=== PATIENT | male | born 1975 | race Two or more races ===

== ENCOUNTER 2022-09-22 15:17 | Inpatient (IN) | payer OTHER ==
[2022-09-22] MEDS ORDERED: ACETAMINOPHEN 500 MG TABLET (FP) PO ONE (16:23)
[2022-09-22 18:15] LABS: BASO % 0.7 % (0-2.0); EOS % 1.8 % (0-4.5); HEMATOCRIT 33.6 % (35.4-49); HEMOGLOBIN 11.3 GM/dL (11.7-16.9); LYMPH % 11.7 % (8-40); MCH 27.8 pg (25.7-33.7); MCHC 33.7 g/dl (32.0-35.9); MEAN CELL VOLUME 82.5 fl (80-96); MEAN PLT VOLUME 7.7 fl (7.5-11.1); MONO % 6.9 % (3.8-10.2); NEUT % 78.9 % (42.8-82.8); PLATELET COUNT 471 10^3/uL (134-434); RBC 4.07 M/mm3 (4.00-5.60); RDW 12.2 % (11.9-15.9)
[2022-09-22 18:40] LABS: ALBUMIN 2.2 g/dl (3.4-5.0); BLOOD UREA NITROGEN 18.5 mg/dL (7-18)
[2022-09-22 18:43] LABS: CREATININE 1.2 mg/dL (0.55-1.3)
[2022-09-22 18:44] LABS: BILIRUBIN,TOTAL 0.2 mg/dL (0.2-1); TOT PROT 7.3 g/dl (6.4-8.2)
[2022-09-22] MEDS ORDERED: CLINDAMYCIN 600MG PREMIX IVPB 600 MG/50 ML BAG IVPB ONE ×2 (20:40→21:06)
[2022-09-22] MEDS ORDERED: ACETAMINOPHEN 325 MG TABLET (FP) ONE (20:42)
[2022-09-22 21:08] LABS: BLOOD UREA NITROGEN 20.1 mg/dL (7-18); CALCIUM 8.9 mg/dL (8.5-10.1)
[2022-09-22 21:11] LABS: CREATININE 1.2 mg/dL (0.55-1.3)
[2022-09-23] MEDS ORDERED: CLINDAMYCIN 600MG PREMIX IVPB 600 MG/50 ML BAG IVPB ONE (06:13)
[2022-09-23] MEDS ORDERED: GABAPENTIN 100 MG CAPSULE ONE (06:13)
[2022-09-23] MEDS ORDERED: INSULIN (NOVOLOG) ASPART 100 UNITS/ML 10ML VIAL ONE ×2 (06:24→11:46)
[2022-09-23] MEDS: CLINDAMYCIN 600MG PREMIX IVPB 600 MG/50 ML BAG IVPB SCH ×4 (06:25→21:00)
[2022-09-23] MEDS: GABAPENTIN 100 MG CAPSULE PO SCH ×3 (06:25→22:24)
[2022-09-23] MEDS: INSULIN SLIDING SCALE (NOVOLOG) 1 VIAL SQ SCH ×4 (06:26→22:38)
[2022-09-23 09:06] LABS: HEMATOCRIT 29.6 % (35.4-49); HEMOGLOBIN 9.8 GM/dL (11.7-16.9); MCH 27.6 pg (25.7-33.7); MCHC 33.3 g/dl (32.0-35.9); PLATELET COUNT 429 10^3/uL (134-434); RBC 3.56 M/mm3 (4.00-5.60); RDW 12.2 % (11.9-15.9); RETICULOCYTES 1.95 % (0.5-1.5); WHITE BLOOD COUNT 16.4 K/mm3 (4.0-10.0)
[2022-09-23] MEDS ORDERED: ENOXAPARIN NA (PORCINE) 40 MG/0.4 ML DISP.SYRIN SQ ONE (09:30)
[2022-09-23 09:31] LABS: CHLORIDE 96 mmol/L (98-107); SODIUM 132 mmol/L (136-145)
[2022-09-23] MEDS: ENOXAPARIN NA (PORCINE) 40 MG/0.4 ML DISP.SYRIN SQ SCH (09:37)
[2022-09-23] MEDS: LISINOPRIL 10 MG TABLET PO SCH (09:38)
[2022-09-23 09:43] LABS: ALBUMIN 1.9 g/dl (3.4-5.0); ANION GAP 6 MMOL/L (8-16); BLOOD UREA NITROGEN 24.7 mg/dL (7-18); CALCIUM 8.5 mg/dL (8.5-10.1); CO2 30 mmol/L (21-32); GLUCOSE,RANDOM 376 mg/dL (74-106)
[2022-09-23 09:46] LABS: CREATININE 1.4 mg/dL (0.55-1.3); LDH 212 U/L (87-246); SGOT/AST 10 U/L (15-37); SGPT/ALT 14 U/L (13-61)
[2022-09-23 09:47] LABS: BILIRUBIN,TOTAL 0.2 mg/dL (0.2-1); TOT PROT 6.2 g/dl (6.4-8.2)
[2022-09-23 09:48] LABS: ALK PHOS 154 U/L (45-117)
[2022-09-23 09:49] LABS: MAGNESIUM 2.4 mg/dL (1.8-2.4)
[2022-09-23] MEDS ORDERED: HYDROCHLOROTHIAZIDE 12.5 MG CAPSULE (FP) PO SCH (10:00)
[2022-09-23 10:50] LABS: GAMMA GLUTAMYL TRANSPEPTIDASE 38 U/L (5-85)
[2022-09-23 17:23] LABS: URIC ACID 7.3 mg/dL (2.6-7.2)
[2022-09-23 17:46] LABS: EPI CELLS 6 /uL (0-25.1); HYALINE CASTS 1 /uL (0-3.1); URINE APPEARANCE CLEAR; URINE BACTERIA 3 /uL (0-1359); URINE BILIRUBIN NEGATIVE (NEGATIVE); URINE COLOR YELLOW; URINE GLUCOSE (UA) 3+ (NEGATIVE); URINE KETONE NEGATIVE (NEGATIVE); URINE LEUK ESTERASE NEGATIVE (NEGATIVE); URINE NITRITE NEGATIVE (NEGATIVE); URINE PROTEIN 3+ (NEGATIVE); URINE RBC 48 /uL (0-23.9); URINE UROBILINOGEN 0.2 mg/dL (0.2-1.0); URINE WBC 8 /uL (0-25.8)
[2022-09-23] MEDS ORDERED: INSULIN (LEVEMIR) 100 UNITS/ML UNITS SQ SCH (22:00)
[2022-09-23] MEDS: ATORVASTATIN CA 40 MG TABLET (FP) PO SCH (22:24)
[2022-09-23] MEDS: INSULIN (LEVEMIR) 100 UNITS/ML UNITS SQ SCH (22:25)
[2022-09-24] MEDS: CLINDAMYCIN 600MG PREMIX IVPB 600 MG/50 ML BAG IVPB SCH ×4 (03:24→21:47)
[2022-09-24] MEDS: INSULIN SLIDING SCALE (NOVOLOG) 1 VIAL SQ SCH ×4 (06:32→22:57)
[2022-09-24] MEDS: GABAPENTIN 100 MG CAPSULE PO SCH ×3 (06:32→22:47)
[2022-09-24] MEDS ORDERED: TAMSULOSIN HCL 0.4 MG CAP PO SCH ×2 (08:30→22:00)
[2022-09-24] MEDS: LISINOPRIL 10 MG TABLET PO SCH (09:46)
[2022-09-24] MEDS: ENOXAPARIN NA (PORCINE) 40 MG/0.4 ML DISP.SYRIN SQ SCH (09:46)
[2022-09-24] MEDS: ACETAMINOPHEN 325 MG TABLET (FP) PO PRN ×2 (17:12→22:47)
[2022-09-24] MEDS: ATORVASTATIN CA 40 MG TABLET (FP) PO SCH (22:47)
[2022-09-24] MEDS: INSULIN (LEVEMIR) 100 UNITS/ML UNITS SQ SCH (22:57)
[2022-09-25] MEDS: CLINDAMYCIN 600MG PREMIX IVPB 600 MG/50 ML BAG IVPB SCH ×4 (03:21→20:32)
[2022-09-25] MEDS: INSULIN SLIDING SCALE (NOVOLOG) 1 VIAL SQ SCH ×4 (06:50→21:56)
[2022-09-25] MEDS: GABAPENTIN 100 MG CAPSULE PO SCH ×3 (06:50→21:55)
[2022-09-25] MEDS: ACETAMINOPHEN 325 MG TABLET (FP) PO PRN (06:50)
[2022-09-25] MEDS ORDERED: TAMSULOSIN HCL 0.4 MG CAP PO SCH (08:30)
[2022-09-25 09:30] LABS: BASO % 0.8 % (0-2.0); EOS % 1.3 % (0-4.5); LYMPH % 14.6 % (8-40); MCH 28.6 pg (25.7-33.7); MCHC 34.8 g/dl (32.0-35.9); MEAN CELL VOLUME 82.3 fl (80-96); MEAN PLT VOLUME 7.3 fl (7.5-11.1); NEUT % 75.3 % (42.8-82.8); PLATELET COUNT 433 10^3/uL (134-434); RBC 3.16 M/mm3 (4.00-5.60); RDW 12.3 % (11.9-15.9); WHITE BLOOD COUNT 14.3 K/mm3 (4.0-10.0)
[2022-09-25] MEDS: ENOXAPARIN NA (PORCINE) 40 MG/0.4 ML DISP.SYRIN SQ SCH (10:25)
[2022-09-25] MEDS: COLCHICINE 0.6 MG TAB PO SCH (10:25)
[2022-09-25] MEDS: LISINOPRIL 10 MG TABLET PO SCH ×2 (10:25→10:39)
[2022-09-25] MEDS ORDERED: INSULIN (LEVEMIR) 100 UNITS/ML UNITS SQ SCH (12:50)
[2022-09-25] MEDS: TAMSULOSIN HCL 0.4 MG CAP PO SCH (13:32)
[2022-09-25 18:12] LABS: ALBUMIN 1.9 g/dl (3.4-5.0); BLOOD UREA NITROGEN 35.4 mg/dL (7-18); CALCIUM 8.6 mg/dL (8.5-10.1)
[2022-09-25 18:13] LABS: MAGNESIUM 2.5 mg/dL (1.8-2.4)
[2022-09-25 18:15] LABS: CREATININE 1.3 mg/dL (0.55-1.3)
[2022-09-25 18:18] LABS: TOT PROT 6.9 g/dl (6.4-8.2)
[2022-09-25 18:27] LABS: BILIRUBIN,TOTAL 0.2 mg/dL (0.2-1)
[2022-09-25] MEDS ORDERED: DOCUSATE SODIUM 100 MG CAPSULE (FP) PO ONE (21:10)
[2022-09-25] MEDS: ATORVASTATIN CA 40 MG TABLET (FP) PO SCH (21:55)
[2022-09-26] MEDS: CLINDAMYCIN 600MG PREMIX IVPB 600 MG/50 ML BAG IVPB SCH ×4 (03:38→21:53)
[2022-09-26] MEDS: GABAPENTIN 100 MG CAPSULE PO SCH ×3 (05:29→21:54)
[2022-09-26] MEDS: INSULIN SLIDING SCALE (NOVOLOG) 1 VIAL SQ SCH ×4 (06:28→21:55)
[2022-09-26] MEDS: ENOXAPARIN NA (PORCINE) 40 MG/0.4 ML DISP.SYRIN SQ SCH (09:07)
[2022-09-26] MEDS: TAMSULOSIN HCL 0.4 MG CAP PO SCH (09:08)
[2022-09-26] MEDS: LISINOPRIL 10 MG TABLET PO SCH ×2 (09:08→09:09)
[2022-09-26] MEDS: COLCHICINE 0.6 MG TAB PO SCH (09:08)
[2022-09-26] MEDS ORDERED: INSULIN (LEVEMIR) 100 UNITS/ML UNITS SQ SCH (11:42)
[2022-09-26 12:36] LABS: CALCIUM 8.4 mg/dL (8.5-10.1)
[2022-09-26 12:37] LABS: ALBUMIN 1.7 g/dl (3.4-5.0); BLOOD UREA NITROGEN 44.6 mg/dL (7-18); MAGNESIUM 2.6 mg/dL (1.8-2.4)
[2022-09-26 12:40] LABS: CREATININE 1.5 mg/dL (0.55-1.3)
[2022-09-26 12:42] LABS: BILIRUBIN,TOTAL 0.2 mg/dL (0.2-1)
[2022-09-26] MEDS: POLYETHYLENE GLYCOL (HEALTHYLAX) 3350 17 GM PACKET PO SCH (13:09)
[2022-09-26] MEDS ORDERED: INSULIN (NOVOLOG) ASPART 100 UNITS/ML 10ML VIAL ONE ×2 (20:57→21:33)
[2022-09-26] MEDS: ATORVASTATIN CA 40 MG TABLET (FP) PO SCH (21:54)
[2022-09-27] MEDS: CLINDAMYCIN 600MG PREMIX IVPB 600 MG/50 ML BAG IVPB SCH ×4 (02:07→20:50)
[2022-09-27] MEDS: GABAPENTIN 100 MG CAPSULE PO SCH ×3 (05:32→21:10)
[2022-09-27] MEDS: INSULIN SLIDING SCALE (NOVOLOG) 1 VIAL SQ SCH ×4 (06:36→21:10)
[2022-09-27] MEDS ORDERED: INSULIN (NOVOLOG) ASPART 100 UNITS/ML 10ML VIAL ONE ×3 (06:58→20:35)
[2022-09-27] MEDS: TAMSULOSIN HCL 0.4 MG CAP PO SCH (08:35)
[2022-09-27] MEDS: POLYETHYLENE GLYCOL (HEALTHYLAX) 3350 17 GM PACKET PO SCH (09:36)
[2022-09-27] MEDS: LISINOPRIL 10 MG TABLET PO SCH (09:36)
[2022-09-27] MEDS: COLCHICINE 0.6 MG TAB PO SCH (09:36)
[2022-09-27] MEDS: ENOXAPARIN NA (PORCINE) 40 MG/0.4 ML DISP.SYRIN SQ SCH (09:36)
[2022-09-27 15:19] LABS: CALCIUM 8.6 mg/dL (8.5-10.1)
[2022-09-27 15:20] LABS: BLOOD UREA NITROGEN 39.6 mg/dL (7-18); MAGNESIUM 2.8 mg/dL (1.8-2.4)
[2022-09-27 15:23] LABS: CREATININE 1.4 mg/dL (0.55-1.3)
[2022-09-27 15:24] LABS: BILIRUBIN,TOTAL 0.2 mg/dL (0.2-1); TOT PROT 6.7 g/dl (6.4-8.2)
[2022-09-27] MEDS ORDERED: INSULIN (LEVEMIR) 100 UNITS/ML UNITS SQ ONE (20:43)
[2022-09-27] MEDS: ACETAMINOPHEN 325 MG TABLET (FP) PO PRN (21:08)
[2022-09-27] MEDS: INSULIN (LEVEMIR) 100 UNITS/ML UNITS SQ SCH (21:10)
[2022-09-27] MEDS: ATORVASTATIN CA 40 MG TABLET (FP) PO SCH (21:10)
[2022-09-28] MEDS: CLINDAMYCIN 600MG PREMIX IVPB 600 MG/50 ML BAG IVPB SCH ×3 (02:00→14:51)
[2022-09-28] MEDS: GABAPENTIN 100 MG CAPSULE PO SCH ×3 (05:56→22:37)
[2022-09-28] MEDS: INSULIN SLIDING SCALE (NOVOLOG) 1 VIAL SQ SCH ×4 (06:01→22:38)
[2022-09-28] MEDS: ALLOPURINOL 100 MG TABLET (FP) PO SCH (09:08)
[2022-09-28] MEDS: TAMSULOSIN HCL 0.4 MG CAP PO SCH (09:08)
[2022-09-28] MEDS: POLYETHYLENE GLYCOL (HEALTHYLAX) 3350 17 GM PACKET PO SCH (09:08)
[2022-09-28] MEDS: ENOXAPARIN NA (PORCINE) 40 MG/0.4 ML DISP.SYRIN SQ SCH (09:08)
[2022-09-28] MEDS: LISINOPRIL 10 MG TABLET PO SCH (09:08)
[2022-09-28 09:21] LABS: BASO % 0.6 % (0-2.0); EOS % 1.7 % (0-4.5); HEMATOCRIT 30.8 % (35.4-49); HEMOGLOBIN 10.3 GM/dL (11.7-16.9); LYMPH % 8.6 % (8-40); MCH 27.5 pg (25.7-33.7); MCHC 33.3 g/dl (32.0-35.9); MEAN CELL VOLUME 82.6 fl (80-96); MEAN PLT VOLUME 7.7 fl (7.5-11.1); MONO % 8.8 % (3.8-10.2); NEUT % 80.3 % (42.8-82.8); PLATELET COUNT 570 10^3/uL (134-434); RBC 3.73 M/mm3 (4.00-5.60); RDW 12.6 % (11.9-15.9); WHITE BLOOD COUNT 17.3 K/mm3 (4.0-10.0)
[2022-09-28 10:04] LABS: BLOOD UREA NITROGEN 38.2 mg/dL (7-18)
[2022-09-28 10:07] LABS: CREATININE 1.1 mg/dL (0.55-1.3)
[2022-09-28 10:08] LABS: BILIRUBIN,TOTAL 0.1 mg/dL (0.2-1); TOT PROT 6.7 g/dl (6.4-8.2)
[2022-09-28] MEDS ORDERED: BISACODYL 10 MG SUPP.RECT PR ONE (10:25)
[2022-09-28] MEDS: PIPERACILLIN/TAZOB 3.375 GM 3.375 GM in DEXTROSE 5%-WATER - 50 ML IVPB SCH (17:42)
[2022-09-28] MEDS ORDERED: SENNOSIDES 8.6MG TABLET (FP) PO PRN (20:48)
[2022-09-28] MEDS ORDERED: INSULIN (NOVOLOG) ASPART 100 UNITS/ML 10ML VIAL ONE (21:46)
[2022-09-28] MEDS: ATORVASTATIN CA 40 MG TABLET (FP) PO SCH (22:37)
[2022-09-28] MEDS: ACETAMINOPHEN 325 MG TABLET (FP) PO PRN (22:37)
[2022-09-28] MEDS: INSULIN (LEVEMIR) 100 UNITS/ML UNITS SQ SCH (22:39)
[2022-09-29] MEDS: PIPERACILLIN/TAZOB 3.375 GM 3.375 GM in DEXTROSE 5%-WATER - 50 ML IVPB SCH ×3 (01:53→19:15)
[2022-09-29] MEDS: GABAPENTIN 100 MG CAPSULE PO SCH ×3 (06:39→22:15)
[2022-09-29] MEDS: INSULIN SLIDING SCALE (NOVOLOG) 1 VIAL SQ SCH ×4 (06:39→22:19)
[2022-09-29 08:58] LABS: BASO % 0.7 % (0-2.0); EOS % 2.4 % (0-4.5); HEMATOCRIT 31.3 % (35.4-49); HEMOGLOBIN 10.3 GM/dL (11.7-16.9); MCH 27.1 pg (25.7-33.7); MCHC 32.9 g/dl (32.0-35.9); MEAN CELL VOLUME 82.4 fl (80-96); MEAN PLT VOLUME 7.6 fl (7.5-11.1); MONO % 8.3 % (3.8-10.2); NEUT % 76.6 % (42.8-82.8); PLATELET COUNT 635 10^3/uL (134-434); RDW 12.5 % (11.9-15.9)
[2022-09-29] MEDS: POLYETHYLENE GLYCOL (HEALTHYLAX) 3350 17 GM PACKET PO SCH (09:39)
[2022-09-29] MEDS: LISINOPRIL 10 MG TABLET PO SCH (09:40)
[2022-09-29] MEDS: ALLOPURINOL 100 MG TABLET (FP) PO SCH (09:40)
[2022-09-29] MEDS: ENOXAPARIN NA (PORCINE) 40 MG/0.4 ML DISP.SYRIN SQ SCH (09:40)
[2022-09-29] MEDS: TAMSULOSIN HCL 0.4 MG CAP PO SCH (09:40)
[2022-09-29] MEDS: ACETAMINOPHEN 325 MG TABLET (FP) PO PRN (13:58)
[2022-09-29] MEDS: VANCOMYCIN/WATER FOR INJ (PEG) 1,000 MG/200 ML BAG IVPB SCH (16:29)
[2022-09-29] MEDS ORDERED: CLINDAMYCIN 600MG PREMIX IVPB 600 MG/50 ML BAG IVPB SCH (18:00)
[2022-09-29] MEDS: ATORVASTATIN CA 40 MG TABLET (FP) PO SCH (22:15)
[2022-09-29] MEDS: INSULIN (LEVEMIR) 100 UNITS/ML UNITS SQ SCH (22:19)
[2022-09-30] MEDS: CLINDAMYCIN 600MG PREMIX IVPB 600 MG/50 ML BAG IVPB SCH ×3 (01:32→17:50)
[2022-09-30] MEDS: PIPERACILLIN/TAZOB 3.375 GM 3.375 GM in DEXTROSE 5%-WATER - 50 ML IVPB SCH ×3 (02:31→17:50)
[2022-09-30] MEDS: VANCOMYCIN/WATER FOR INJ (PEG) 1,000 MG/200 ML BAG IVPB SCH ×2 (04:21→17:50)
[2022-09-30] MEDS: GABAPENTIN 100 MG CAPSULE PO SCH ×3 (05:52→21:50)
[2022-09-30] MEDS: INSULIN SLIDING SCALE (NOVOLOG) 1 VIAL SQ SCH ×4 (06:09→22:00)
[2022-09-30 10:04] LABS: BASO % 0.4 % (0-2.0); EOS % 2.2 % (0-4.5); HEMATOCRIT 27.2 % (35.4-49); HEMOGLOBIN 9.4 GM/dL (11.7-16.9); LYMPH % 13.7 % (8-40); MCH 28.4 pg (25.7-33.7); MCHC 34.6 g/dl (32.0-35.9); MEAN CELL VOLUME 82.1 fl (80-96); MEAN PLT VOLUME 7.2 fl (7.5-11.1); NEUT % 75.7 % (42.8-82.8); PLATELET COUNT 540 10^3/uL (134-434); RBC 3.32 M/mm3 (4.00-5.60); RDW 12.2 % (11.9-15.9); WHITE BLOOD COUNT 16.9 K/mm3 (4.0-10.0)
[2022-09-30 10:43] LABS: ALBUMIN 1.7 g/dl (3.4-5.0); BLOOD UREA NITROGEN 32.1 mg/dL (7-18); CALCIUM 8.2 mg/dL (8.5-10.1)
[2022-09-30 10:46] LABS: CREATININE 1.1 mg/dL (0.55-1.3)
[2022-09-30 10:48] LABS: BILIRUBIN,TOTAL 0.2 mg/dL (0.2-1); TOT PROT 6.1 g/dl (6.4-8.2)
[2022-09-30] MEDS: POLYETHYLENE GLYCOL (HEALTHYLAX) 3350 17 GM PACKET PO SCH (11:43)
[2022-09-30] MEDS: LISINOPRIL 10 MG TABLET PO SCH (11:44)
[2022-09-30] MEDS: TAMSULOSIN HCL 0.4 MG CAP PO SCH (11:45)
[2022-09-30] MEDS: ALLOPURINOL 100 MG TABLET (FP) PO SCH (11:45)
[2022-09-30] MEDS: ACETAMINOPHEN 325 MG TABLET (FP) PO PRN (12:01)
[2022-09-30] MEDS: ATORVASTATIN CA 40 MG TABLET (FP) PO SCH (21:50)
[2022-09-30] MEDS: INSULIN (LEVEMIR) 100 UNITS/ML UNITS SQ SCH (21:51)
[2022-10-01] MEDS: CLINDAMYCIN 600MG PREMIX IVPB 600 MG/50 ML BAG IVPB SCH ×3 (01:10→17:41)
[2022-10-01] MEDS: PIPERACILLIN/TAZOB 3.375 GM 3.375 GM in DEXTROSE 5%-WATER - 50 ML IVPB SCH ×2 (01:23→09:42)
[2022-10-01] MEDS: VANCOMYCIN/WATER FOR INJ (PEG) 1,000 MG/200 ML BAG IVPB SCH (03:12)
[2022-10-01] MEDS: GABAPENTIN 100 MG CAPSULE PO SCH ×3 (06:09→22:29)
[2022-10-01] MEDS: INSULIN SLIDING SCALE (NOVOLOG) 1 VIAL SQ SCH ×4 (06:09→22:36)
[2022-10-01] MEDS: TAMSULOSIN HCL 0.4 MG CAP PO SCH (08:31)
[2022-10-01] MEDS: POLYETHYLENE GLYCOL (HEALTHYLAX) 3350 17 GM PACKET PO SCH (09:42)
[2022-10-01] MEDS: LISINOPRIL 10 MG TABLET PO SCH (09:42)
[2022-10-01] MEDS: ALLOPURINOL 100 MG TABLET (FP) PO SCH (09:42)
[2022-10-01] MEDS: CEFTRIAXONE 2 GM in DEXTROSE 5%-WATER 100 ML IVPB SCH (14:45)
[2022-10-01] MEDS: ATORVASTATIN CA 40 MG TABLET (FP) PO SCH (22:29)
[2022-10-01] MEDS: ACETAMINOPHEN 325 MG TABLET (FP) PO PRN (22:29)
[2022-10-01] MEDS: INSULIN (LEVEMIR) 100 UNITS/ML UNITS SQ SCH (22:36)
[2022-10-02] MEDS: CLINDAMYCIN 600MG PREMIX IVPB 600 MG/50 ML BAG IVPB SCH ×3 (02:25→18:23)
[2022-10-02] MEDS: GABAPENTIN 100 MG CAPSULE PO SCH ×3 (06:24→21:46)
[2022-10-02] MEDS: INSULIN SLIDING SCALE (NOVOLOG) 1 VIAL SQ SCH ×4 (06:24→21:46)
[2022-10-02 07:47] LABS: BASO % 0.8 % (0-2.0); EOS % 4.2 % (0-4.5); HEMATOCRIT 28.2 % (35.4-49); HEMOGLOBIN 9.6 GM/dL (11.7-16.9); LYMPH % 18.5 % (8-40); MCH 27.9 pg (25.7-33.7); MCHC 33.9 g/dl (32.0-35.9); MEAN CELL VOLUME 82.3 fl (80-96); MEAN PLT VOLUME 7.3 fl (7.5-11.1); NEUT % 68.5 % (42.8-82.8); PLATELET COUNT 629 10^3/uL (134-434); RBC 3.42 M/mm3 (4.00-5.60); RDW 12.4 % (11.9-15.9); WHITE BLOOD COUNT 13.5 K/mm3 (4.0-10.0)
[2022-10-02 07:48] LABS: INR 1.15 (0.83-1.09); PROTHROMBIN TIME (PATIENT) 13.3 SEC (9.7-13.0)
[2022-10-02] MEDS: TAMSULOSIN HCL 0.4 MG CAP PO SCH (08:17)
[2022-10-02 08:33] LABS: CALCIUM 8.7 mg/dL (8.5-10.1)
[2022-10-02 08:34] LABS: BLOOD UREA NITROGEN 34.2 mg/dL (7-18)
[2022-10-02 08:37] LABS: CREATININE 1.1 mg/dL (0.55-1.3)
[2022-10-02] MEDS: CEFTRIAXONE 2 GM in DEXTROSE 5%-WATER 100 ML IVPB SCH (09:57)
[2022-10-02] MEDS: POLYETHYLENE GLYCOL (HEALTHYLAX) 3350 17 GM PACKET PO SCH (09:58)
[2022-10-02] MEDS: ALLOPURINOL 100 MG TABLET (FP) PO SCH (09:58)
[2022-10-02] MEDS: LISINOPRIL 10 MG TABLET PO SCH (09:58)
[2022-10-02] MEDS ORDERED: D5-1/2NS+10 MEQ KCL - 10 MEQ/1,000 ML INFUS.BAG IV SCH (11:45)
[2022-10-02] MEDS ORDERED: PROMETHAZINE HCL 25 MG/1 ML VIAL IVPB PRN ×2 (15:11→17:44)
[2022-10-02] MEDS ORDERED: ONDANSETRON 4 MG/2 ML VIAL IVPUSH PRN ×2 (15:11→17:44)
[2022-10-02] MEDS ORDERED: LACTATED RINGERS SOLUTION 1,000 ML IV SCH ×2 (15:15→17:44)
[2022-10-02] MEDS ORDERED: PROPOFOL 20 ML ONE ×2 (15:25→17:08)
[2022-10-02] MEDS ORDERED: MIDAZOLAM HCL 2 MG/2 ML SINGLE DOSE VIAL ONE (15:25)
[2022-10-02] MEDS ORDERED: LIDOCAINE HCL/PF 2% SDV 5ML VIAL ONE (15:27)
[2022-10-02] MEDS ORDERED: LIDOCAINE HCL 2% (20ML MULTI-DOSE VIAL) ONE (15:40)
[2022-10-02] MEDS ORDERED: GENTAMICIN SO4 80 MG/2 ML VIAL ONE (15:40)
[2022-10-02] MEDS ORDERED: LIDOCAINE HCL 2% (50ML VIAL) NR ONE (16:51)
[2022-10-02] MEDS ORDERED: METOCLOPRAMIDE HCL INJECTION 10 MG/2 ML VIAL ONE (16:54)
[2022-10-02] MEDS ORDERED: BUPIVACAINE HCL/PF 0.5% (5 MG/ML) 30 ML VIAL IJ ONE (17:25)
[2022-10-02] MEDS ORDERED: SENNOSIDES 8.6MG TABLET (FP) PO PRN (17:44)
[2022-10-02] MEDS ORDERED: CLINDAMYCIN 600MG PREMIX IVPB 600 MG/50 ML BAG IVPB ONE (18:20)
[2022-10-02] MEDS ORDERED: CLINDAMYCIN 600 MG PREMIX BAG IVPB ONE (18:23)
[2022-10-02] MEDS: D5-1/2NS+10 MEQ KCL - 10 MEQ/1,000 ML INFUS.BAG IV SCH (21:22)
[2022-10-02] MEDS: ACETAMINOPHEN 325 MG TABLET (FP) PO PRN (21:45)
[2022-10-02] MEDS: ATORVASTATIN CA 40 MG TABLET (FP) PO SCH (21:46)
[2022-10-02] MEDS ORDERED: INSULIN (LEVEMIR) 100 UNITS/ML UNITS SQ SCH (22:00)
[2022-10-03] MEDS: CLINDAMYCIN 600MG PREMIX IVPB 600 MG/50 ML BAG IVPB SCH ×2 (03:10→09:18)
[2022-10-03] MEDS: ACETAMINOPHEN 325 MG TABLET (FP) PO PRN ×2 (03:16→13:29)
[2022-10-03] MEDS: GABAPENTIN 100 MG CAPSULE PO SCH ×3 (06:12→23:23)
[2022-10-03] MEDS: D5-1/2NS+10 MEQ KCL - 10 MEQ/1,000 ML INFUS.BAG IV SCH ×2 (06:13→17:11)
[2022-10-03] MEDS: INSULIN SLIDING SCALE (NOVOLOG) 1 VIAL SQ SCH ×4 (06:13→23:24)
[2022-10-03 07:52] LABS: BASO % 0.6 % (0-2.0); EOS % 2.1 % (0-4.5); HEMATOCRIT 25.3 % (35.4-49); HEMOGLOBIN 8.3 GM/dL (11.7-16.9); MCH 27.3 pg (25.7-33.7); MCHC 32.9 g/dl (32.0-35.9); MEAN CELL VOLUME 82.8 fl (80-96); MEAN PLT VOLUME 7.4 fl (7.5-11.1); MONO % 4.8 % (3.8-10.2); NEUT % 77.5 % (42.8-82.8); PLATELET COUNT 575 10^3/uL (134-434); RBC 3.06 M/mm3 (4.00-5.60); RDW 12.4 % (11.9-15.9)
[2022-10-03 09:12] LABS: CALCIUM 8.1 mg/dL (8.5-10.1)
[2022-10-03 09:13] LABS: BLOOD UREA NITROGEN 31.5 mg/dL (7-18)
[2022-10-03 09:16] LABS: CREATININE 1.3 mg/dL (0.55-1.3)
[2022-10-03] MEDS: POLYETHYLENE GLYCOL (HEALTHYLAX) 3350 17 GM PACKET PO SCH (09:18)
[2022-10-03] MEDS: LISINOPRIL 10 MG TABLET PO SCH (09:19)
[2022-10-03] MEDS: ALLOPURINOL 100 MG TABLET (FP) PO SCH (09:19)
[2022-10-03] MEDS: TAMSULOSIN HCL 0.4 MG CAP PO SCH (09:19)
[2022-10-03] MEDS: CEFTRIAXONE 2 GM in DEXTROSE 5%-WATER 100 ML IVPB SCH (09:52)
[2022-10-03] MEDS: traMADol HCL 50 MG TABLET PO PRN ×2 (15:11→23:23)
[2022-10-03] MEDS ORDERED: ENOXAPARIN NA (PORCINE) 30 MG/0.3 ML DISP.SYRIN SQ SCH (21:00)
[2022-10-03] MEDS: ENOXAPARIN NA (PORCINE) 40 MG/0.4 ML DISP.SYRIN SQ SCH (23:23)
[2022-10-03] MEDS: ATORVASTATIN CA 40 MG TABLET (FP) PO SCH (23:23)
[2022-10-03] MEDS: INSULIN (LEVEMIR) 100 UNITS/ML UNITS SQ SCH (23:24)
[2022-10-04] MEDS: GABAPENTIN 100 MG CAPSULE PO SCH ×3 (06:25→23:21)
[2022-10-04] MEDS: INSULIN SLIDING SCALE (NOVOLOG) 1 VIAL SQ SCH ×4 (06:25→23:22)
[2022-10-04] MEDS: D5-1/2NS+10 MEQ KCL - 10 MEQ/1,000 ML INFUS.BAG IV SCH ×2 (06:27→17:25)
[2022-10-04] MEDS: ENOXAPARIN NA (PORCINE) 40 MG/0.4 ML DISP.SYRIN SQ SCH (09:01)
[2022-10-04] MEDS: LISINOPRIL 10 MG TABLET PO SCH (09:01)
[2022-10-04] MEDS: ALLOPURINOL 100 MG TABLET (FP) PO SCH (09:01)
[2022-10-04] MEDS: TAMSULOSIN HCL 0.4 MG CAP PO SCH (09:01)
[2022-10-04] MEDS: CEFTRIAXONE 2 GM in DEXTROSE 5%-WATER 100 ML IVPB SCH (09:02)
[2022-10-04] MEDS: POLYETHYLENE GLYCOL (HEALTHYLAX) 3350 17 GM PACKET PO SCH (09:03)
[2022-10-04 09:13] LABS: ALBUMIN 1.6 g/dl (3.4-5.0); BLOOD UREA NITROGEN 25.9 mg/dL (7-18)
[2022-10-04 09:15] LABS: EOS % 4.1 % (0-4.5); HEMATOCRIT 25.5 % (35.4-49); HEMOGLOBIN 8.7 GM/dL (11.7-16.9); LYMPH % 30.4 % (8-40); MCH 28.2 pg (25.7-33.7); MCHC 34.3 g/dl (32.0-35.9); MEAN CELL VOLUME 82.2 fl (80-96); MEAN PLT VOLUME 7.5 fl (7.5-11.1); MONO % 6.6 % (3.8-10.2); NEUT % 57.9 % (42.8-82.8); PLATELET COUNT 565 10^3/uL (134-434); RDW 12.5 % (11.9-15.9); WHITE BLOOD COUNT 10.7 K/mm3 (4.0-10.0)
[2022-10-04 09:18] LABS: BILIRUBIN,TOTAL 0.2 mg/dL (0.2-1); TOT PROT 5.6 g/dl (6.4-8.2)
[2022-10-04] MEDS ORDERED: INSULIN (NOVOLOG) ASPART 100 UNITS/ML 10ML VIAL ONE (22:12)
[2022-10-04] MEDS: INSULIN (LEVEMIR) 100 UNITS/ML UNITS SQ SCH (23:20)
[2022-10-04] MEDS: ATORVASTATIN CA 40 MG TABLET (FP) PO SCH (23:20)
[2022-10-04] MEDS: traMADol HCL 50 MG TABLET PO PRN (23:21)
[2022-10-05] MEDS: GABAPENTIN 100 MG CAPSULE PO SCH ×3 (06:23→22:12)
[2022-10-05] MEDS: D5-1/2NS+10 MEQ KCL - 10 MEQ/1,000 ML INFUS.BAG IV SCH (06:24)
[2022-10-05] MEDS: INSULIN SLIDING SCALE (NOVOLOG) 1 VIAL SQ SCH ×4 (06:24→22:12)
[2022-10-05] MEDS: CEFTRIAXONE 2 GM in DEXTROSE 5%-WATER 100 ML IVPB SCH (11:27)
[2022-10-05] MEDS: TAMSULOSIN HCL 0.4 MG CAP PO SCH (11:28)
[2022-10-05] MEDS: LISINOPRIL 10 MG TABLET PO SCH (11:28)
[2022-10-05] MEDS: POLYETHYLENE GLYCOL (HEALTHYLAX) 3350 17 GM PACKET PO SCH (11:28)
[2022-10-05] MEDS: ALLOPURINOL 100 MG TABLET (FP) PO SCH (11:28)
[2022-10-05] MEDS: ENOXAPARIN NA (PORCINE) 40 MG/0.4 ML DISP.SYRIN SQ SCH (11:29)
[2022-10-05 15:07] VITALS: BMI 22.8
[2022-10-05] MEDS ORDERED: INSULIN (NOVOLOG) ASPART 100 UNITS/ML 10ML VIAL ONE (21:06)
[2022-10-05] MEDS: ATORVASTATIN CA 40 MG TABLET (FP) PO SCH (22:12)
[2022-10-05] MEDS: INSULIN (LEVEMIR) 100 UNITS/ML UNITS SQ SCH (22:13)
[2022-10-06] MEDS: GABAPENTIN 100 MG CAPSULE PO SCH ×3 (06:00→22:53)
[2022-10-06] MEDS: INSULIN SLIDING SCALE (NOVOLOG) 1 VIAL SQ SCH ×4 (06:00→22:53)
[2022-10-06] MEDS: TAMSULOSIN HCL 0.4 MG CAP PO SCH (08:28)
[2022-10-06 08:38] LABS: BASO % 1.1 % (0-2.0); EOS % 4.9 % (0-4.5); HEMATOCRIT 25.5 % (35.4-49); HEMOGLOBIN 8.8 GM/dL (11.7-16.9); LYMPH % 27.1 % (8-40); MCH 28.3 pg (25.7-33.7); MCHC 34.4 g/dl (32.0-35.9); MEAN CELL VOLUME 82.2 fl (80-96); MEAN PLT VOLUME 7.1 fl (7.5-11.1); MONO % 7.6 % (3.8-10.2); NEUT % 59.3 % (42.8-82.8); PLATELET COUNT 581 10^3/uL (134-434); RDW 12.4 % (11.9-15.9); WHITE BLOOD COUNT 9.3 K/mm3 (4.0-10.0)
[2022-10-06 09:01] LABS: ALBUMIN 1.7 g/dl (3.4-5.0); CALCIUM 8.4 mg/dL (8.5-10.1)
[2022-10-06 09:06] LABS: BILIRUBIN,TOTAL 0.3 mg/dL (0.2-1)
[2022-10-06 09:14] LABS: BLOOD UREA NITROGEN 22.3 mg/dL (7-18); CREATININE 0.9 mg/dL (0.55-1.3)
[2022-10-06] MEDS: ALLOPURINOL 100 MG TABLET (FP) PO SCH (09:23)
[2022-10-06] MEDS: LISINOPRIL 10 MG TABLET PO SCH (09:23)
[2022-10-06] MEDS: POLYETHYLENE GLYCOL (HEALTHYLAX) 3350 17 GM PACKET PO SCH (09:23)
[2022-10-06] MEDS: ENOXAPARIN NA (PORCINE) 40 MG/0.4 ML DISP.SYRIN SQ SCH (09:24)
[2022-10-06] MEDS: CEFTRIAXONE 2 GM in DEXTROSE 5%-WATER 100 ML IVPB SCH (10:48)
[2022-10-06] MEDS ORDERED: INSULIN (NOVOLOG) ASPART 100 UNITS/ML 10ML VIAL ONE (16:46)
[2022-10-06] MEDS ORDERED: SODIUM ZIRCONIUM CYCLOSILICATE (LOKELMA) 5 GM PACKET PO ONE (18:03)
[2022-10-06] MEDS: INSULIN (LEVEMIR) 100 UNITS/ML UNITS SQ SCH (22:52)
[2022-10-06] MEDS: ATORVASTATIN CA 40 MG TABLET (FP) PO SCH (22:53)
[2022-10-07] MEDS: GABAPENTIN 100 MG CAPSULE PO SCH ×3 (06:13→21:15)
[2022-10-07] MEDS: INSULIN SLIDING SCALE (NOVOLOG) 1 VIAL SQ SCH ×4 (06:13→21:14)
[2022-10-07] MEDS: TAMSULOSIN HCL 0.4 MG CAP PO SCH (08:28)
[2022-10-07] MEDS: CEFTRIAXONE 2 GM in DEXTROSE 5%-WATER 100 ML IVPB SCH (09:10)
[2022-10-07] MEDS: POLYETHYLENE GLYCOL (HEALTHYLAX) 3350 17 GM PACKET PO SCH (09:11)
[2022-10-07] MEDS: LISINOPRIL 10 MG TABLET PO SCH (09:11)
[2022-10-07] MEDS: ALLOPURINOL 100 MG TABLET (FP) PO SCH (09:11)
[2022-10-07] MEDS: ENOXAPARIN NA (PORCINE) 40 MG/0.4 ML DISP.SYRIN SQ SCH (09:11)
[2022-10-07 12:25] LABS: BASO % 0.8 % (0-2.0); EOS % 3.7 % (0-4.5); HEMATOCRIT 28.2 % (35.4-49); HEMOGLOBIN 9.6 GM/dL (11.7-16.9); LYMPH % 30.5 % (8-40); MCHC 33.9 g/dl (32.0-35.9); MEAN CELL VOLUME 82.5 fl (80-96); MEAN PLT VOLUME 7.2 fl (7.5-11.1); PLATELET COUNT 616 10^3/uL (134-434); RBC 3.42 M/mm3 (4.00-5.60); RDW 12.4 % (11.9-15.9); WHITE BLOOD COUNT 9.2 K/mm3 (4.0-10.0)
[2022-10-07 12:49] LABS: CALCIUM 8.8 mg/dL (8.5-10.1)
[2022-10-07 12:50] LABS: ALBUMIN 1.8 g/dl (3.4-5.0); BLOOD UREA NITROGEN 21.2 mg/dL (7-18); MAGNESIUM 2.3 mg/dL (1.8-2.4)
[2022-10-07 12:53] LABS: CREATININE 0.9 mg/dL (0.55-1.3)
[2022-10-07 12:55] LABS: BILIRUBIN,TOTAL 0.2 mg/dL (0.2-1); TOT PROT 6.2 g/dl (6.4-8.2)
[2022-10-07] MEDS ORDERED: SODIUM ZIRCONIUM CYCLOSILICATE (LOKELMA) 5 GM PACKET PO ONE (14:09)
[2022-10-07] MEDS ORDERED: INSULIN (NOVOLOG) ASPART 100 UNITS/ML 10ML VIAL ONE (20:32)
[2022-10-07] MEDS: INSULIN (LEVEMIR) 100 UNITS/ML UNITS SQ SCH (21:14)
[2022-10-07] MEDS: ATORVASTATIN CA 40 MG TABLET (FP) PO SCH (21:15)
[2022-10-08] MEDS: GABAPENTIN 100 MG CAPSULE PO SCH ×2 (05:53→13:51)
[2022-10-08] MEDS: INSULIN SLIDING SCALE (NOVOLOG) 1 VIAL SQ SCH ×3 (06:00→16:40)
[2022-10-08] MEDS ORDERED: INSULIN (LEVEMIR) 100 UNITS/ML UNITS SQ ONE (06:11)
[2022-10-08] MEDS ORDERED: INSULIN (NOVOLOG) ASPART 100 UNITS/ML 10ML VIAL ONE (06:11)
[2022-10-08] MEDS: TAMSULOSIN HCL 0.4 MG CAP PO SCH (08:26)
[2022-10-08] MEDS: POLYETHYLENE GLYCOL (HEALTHYLAX) 3350 17 GM PACKET PO SCH (09:43)
[2022-10-08] MEDS: ALLOPURINOL 100 MG TABLET (FP) PO SCH (09:44)
[2022-10-08] MEDS: CEFTRIAXONE 2 GM in DEXTROSE 5%-WATER 100 ML IVPB SCH (09:44)
[2022-10-08] MEDS: LISINOPRIL 10 MG TABLET PO SCH (09:44)
[2022-10-08] MEDS: ENOXAPARIN NA (PORCINE) 40 MG/0.4 ML DISP.SYRIN SQ SCH (09:46)
[2022-10-08 10:33] VITALS: RESP 20
[2022-10-08 12:51] LABS: EOS % 4.6 % (0-4.5); HEMATOCRIT 31.5 % (35.4-49); HEMOGLOBIN 10.4 GM/dL (11.7-16.9); LYMPH % 33.5 % (8-40); MCHC 33.1 g/dl (32.0-35.9); MEAN CELL VOLUME 81.5 fl (80-96); MEAN PLT VOLUME 7.2 fl (7.5-11.1); MONO % 6.4 % (3.8-10.2); NEUT % 54.5 % (42.8-82.8); PLATELET COUNT 606 10^3/uL (134-434); RBC 3.87 M/mm3 (4.00-5.60); RDW 12.6 % (11.9-15.9); WHITE BLOOD COUNT 8.8 K/mm3 (4.0-10.0)
[2022-10-08 13:19] LABS: CHLORIDE 104 mmol/L (98-107); SODIUM 135 mmol/L (136-145)
[2022-10-08 13:26] LABS: CALCIUM 9.1 mg/dL (8.5-10.1)
[2022-10-08 13:27] LABS: ALBUMIN 2.2 g/dl (3.4-5.0); ANION GAP 4 MMOL/L (8-16); BLOOD UREA NITROGEN 23.1 mg/dL (7-18); CO2 27 mmol/L (21-32); GLUCOSE,RANDOM 127 mg/dL (74-106); MAGNESIUM 2.3 mg/dL (1.8-2.4)
[2022-10-08 13:30] LABS: CREATININE 0.9 mg/dL (0.55-1.3); SGOT/AST 20 U/L (15-37); SGPT/ALT 24 U/L (13-61)
[2022-10-08 13:31] LABS: TOT PROT 7.1 g/dl (6.4-8.2)
[2022-10-08 13:32] LABS: BILIRUBIN,TOTAL < 0.1 mg/dL (0.2-1)
[2022-10-08 13:33] LABS: ALK PHOS 123 U/L (45-117)
[2022-10-08 14:47] VITALS: BP 125/76; PULSE 78; TEMP 98.4
== END 2022-10-08 17:15 | disposition home or self-care (01) | DRG 314 ==
LOC: JER 15:17 → JERBED 23:30 → J7W 09-23 14:09
PROVIDERS: ADMIT Internal Medicine; ATTEND Nurse Practitioner Family
PROC: 0JCQ0ZZ Extirpation of Matter from Right Foot Subcutaneous Tissue and Fascia, Open Approach (ICD-10-PCS; 2022-10-02)
PROC: 0Y6X0Z1 Detachment at Right 5th Toe, High, Open Approach (ICD-10-PCS; principal; 2022-10-02 16:00)
PROC: 0QBN0ZZ Excision of Right Metatarsal, Open Approach (ICD-10-PCS; 2022-10-02 16:00)
DX: E11.69 Type 2 diabetes mellitus with other specified complication (principal); E11.40 Type 2 diabetes mellitus with diabetic neuropathy, unspecified; E11.65 Type 2 diabetes mellitus with hyperglycemia; E87.1 Hypo-osmolality and hyponatremia; L03.115 Cellulitis of right lower limb; M86.9 Osteomyelitis, unspecified; M10.9 Gout, unspecified; R29.6 Repeated falls; R33.9 Retention of urine, unspecified; T81.31XA Disruption of external operation (surgical) wound, not elsewhere classified, initial encounter; S90.454A Superficial foreign body, right lesser toe(s), initial encounter; Y83.9 Surgical procedure, unspecified as the cause of abnormal reaction of the patient, or of later complication, without mention of misadventure at the time of the procedure; X58.XXXA Exposure to other specified factors, initial encounter; Y93.9 Activity, unspecified; Y92.89 Other specified places as the place of occurrence of the external cause; Y99.9 Unspecified external cause status; I10 Essential (primary) hypertension; E11.621 Type 2 diabetes mellitus with foot ulcer; L97.519 Non-pressure chronic ulcer of other part of right foot with unspecified severity
CPT/HCPCS: 36415; 71046-TC-FY; 73560-TC-LT-FY; 73560-TC-RT-FY; 73610-TC-RT-FY; 73630-TC-RT-FY; 73700-TC-RT; 73718-TC-RT; 74176-TC; 80048; 80053; 80061; 81003; 82550; 82553; 82728; 82962; 82977; 83036; 83540; 83550; 83615; 83735; 84100; 84153; 84550; 85025; 85027; 85045; 85610; 86038; 86140; 86431; 86850; 86900; 86901; 87040; 87070; 87075; 87081; 87086; 87186; 87205; 87529; 88304-TC; 88305-TC; 88311-TC; 93005; 93010; 93970-TC; 94760; 97116-GP; 97162-GP; 99285-25; C9803-CS; G0480; U0003; U0005